=== PATIENT | male | born 1945 | race Caucasian/White ===

== ENCOUNTER 2017-10-03 07:49 | Emergency (ER) | payer OTHER, MEDICARE ==
[2017-10-03 08:12] VITALS: BMI 32.1
--- NOTE | 2017-10-03 08:16 | DR.GENAD ---
HPI - Complaint/Symptoms Chief Complaint Doctors Comments: Patient presented to the ED for evaluation due to weakness and falling on last night times three. He was diagnosed with influenza in [place] yesterday, given Rx for Tamiflu, pharmacy was out of medication. Patient states that he fell x 3 on last night due to weakness., admits to weakness for two to three days. Patient denies dyspnea or chest pain. PMH of cardiac stents 3-4 years ago. ROS - Review of Systems Constitutional: No Symptoms Reported Eyes: No Symptoms Reported ENTM: No Symptoms Reported Respiratoy: Dry Cough Gastrointestinal/Abdominal: Nausea Genitourinary: No Symptoms Reported Neurological: No Symptoms Reported Musculoskeletal: No Symptoms Reported Integumentary: No Symptoms Reported Hematologic/Lymphatic: No Symptoms Reported Endocrine: No Symptoms Reported Psychiatric: No Symptoms Reported All Other Systems: Reviewed and Negative PE - Vital Signs Vitals: Temperature 100.7 F Pulse Rate 103 Respiratory Rate 26 Blood Pressure 162/83 O2 Sat by Pulse Oximetry 92 - General Limitations: No Limitations General Appearance: Alert, In No Apparent Distress - Head Head Exam: Normal Inspection, Atraumatic - Eyes Eye exam: Normal Appearance, PERRL, EOMI - ENT ENT Exam: Normal Exam External Ear Exam: Normal External Inspection TM/Canal Exam: Bilateral Normal Nose Exam: Normal Nose Exam. negative: Sinus Tenderness Mouth Exam: Normal Inspection Throat Exam: Normal Inspection - Neck Neck Exam: Normal Inspection, Full ROM - Chest Chest Inspection: Normal Inspection - Respiratory Respiratory Exam: Normal Lung Sounds Bilat Respiratory Exam: Bilateral Clear to Auscultation - Cardiovascular Cardiovascular Exam: Regular Rate, Normal Rhythm - Abdominal Exam Abdominal Exam: Normal Inspection Abdominal Tenderness: negative: RUQ, RLQ, LUQ, LLQ, Epigastrium, Suprapubic, Diffuse, Mild, Moderate, Severe, Other - Extremities Extremities Exam: Normal Inspection, Other (bilateral knees with bruise). negative: Tenderness, Edema, Joint Swelling - Back Back Exam: Normal Inspection - Neurologic Neurological Exam: Alert, Oriented X3, CN II-XII Intact - Psychiatric Psychiatric Exam: Normal Affect, Normal Mood - Skin Skin Exam: Warm, Dry, Intact Course - Reevaluation 1st: Unchanged - Consultation Called: 09:30 (Dr Araujo accepted patient ER to ER) ROR - Labs Reviewed Laboratory Results Reviewed?: Yes (Influenza A) Result Diagrams: 10/03/17 08:30 10/03/17 08:30 Laboratory: WBC 7.5 X10^3/uL (3.6-10.0) 10/03/17 08:30 RBC 3.99 X10^6/uL (4.7-6.0) L 10/03/17 08:30 Hgb 12.3 g/dL (13.5-18.0) L 10/03/17 08:30 Hct 35.8 % (42.0-54.0) L 10/03/17 08:30 MCV 89.8 fL (80.0-100.0) 10/03/17 08:30 MCH 31.0 pg (27.0-34.0) 10/03/17 08: MCHC 34.5 g/dL (33.0-35.0) 10/03/17 08:30 RDW 14.1 % (11.6-16.5) 10/03/17 08:30 Plt Count 149 X10^3/uL (150.0-450.0) L 10/03/17 08:30 MPV 8.9 fL (7.4-11.0) 10/03/17 08:30 Neut % 83.4 % (42.0-75.0) H 10/03/17 08:30 Lymph % 7.1 % (21.0-51.0) L 10/03/17 08:30 [place] % 8.5 % (0.0-13.0) 10/03/17 08:30 Eos % 0.3 % (0.9-2.9) L 10/03/17 08: Baso % 0.7 % (0.2-1.0) 10/03/17 08:30 Neut # 6.3 x10^3/uL (2.2-4.8) H 10/03/17 08:30 Lymph # 0.5 X10^3/uL (1.3-2.9) L 10/03/17 08:30 [place] # 0.6 x10^3/uL (0.3-0.8) 10/03/17 08:30 Eos # 0.0 x10^3/uL (0.0-0.2) 10/03/17 08: Baso # 0.1 X10^3/uL (0.0-0.1) 10/03/17 08:30 Absolute Nucleated RBC 0.0 /100WBC 10/03/17 08:30 Sodium 135 mmol/L (136-145) L 10/03/17 08:30 Corrected Sodium TNP 10/03/17 08:30 Potassium 3.9 mmol/L (3.5-5.1) 10/03/17 08:30 Chloride 100 mmol/L (98-107) 10/03/17 08:30 Carbon Dioxide 23.8 mmol/L (21-32) 10/03/17 08:30 BUN 26 mg/dL (7-18) H 10/03/17 08:30 Creatinine 1.86 mg/dL (0.70-1.30) H 10/03/17 08:30 Est GFR (MDRD) Af Amer 46 (>60) L 10/03/17 08:30 Est GFR (MDRD) Non-Af 38 (>60) L 10/03/17 08:30 Glucose 103 mg/dL (65-99) H 10/03/17 08:30 Calcium 8.1 mg/dL (8.5-10.1) L 10/03/17 08:30 Corrected Calcium 8.7 mg/dL (8.5-10.1) 10/03/17 08:30 Total Bilirubin 0.80 mg/dL (0.2-1.0) 10/03/17 08:30 AST 49 Units/L (15-37) H 10/03/17 08:30 ALT 21 Units/L (12-78) 10/03/17 08:30 Alkaline Phosphatase 64 Units/L (46-116) 10/03/17 08:30 Creatine Kinase 3048 Units/L (39-308) H 10/03/17 08:30 CK-MB (CK-2) 3.1 ng/mL (0-4.0) 10/03/17 08:30 CK/CKMB % Calc 0.1 % (<4) 10/03/17 08:30 Troponin I 0.33 ng/mL (0-1.5) 10/03/17 08:30 Total Protein 7.2 g/dL (6.4-8.2) 10/03/17 08:30 Albumin 3.3 g/dL (3.4-5.0) L 10/03/17 08:30 Globulin 3.9 g/dL (2.5-4.5) 10/03/17 08:30 Albumin/Globulin Ratio 0.8 Ratio (1.1-2.1) L 10/03/17 08:30 Influenza Type A (PCR) Positive (NEGATIVE) A 10/03/17 08:41 Influenza Type B (PCR) Negative (NEGATIVE) 10/03/17 08:41 Streptococcus Screen Negative (NEGATIVE) 10/03/17 08:41 - XRAY XRAY Interpreted by: Radiologist (The trachea is midline. The cardiac silhouette is enlarged. The lungs demonstrate some ill-defined perihilar airspace opacities right basilar opacity suggesting pneumonia. The bony thorax is unremarkable. Impression: Early develooping multifocal pneumonia) - Diagnosis Discharge Problem: Acute myocardial infarction Qualifiers: Myocardial infarction ST status: ST elevation myocardial infarction Involved coronary artery: other coronary artery Qualified Code(s): I21.29 - ST elevation (STEMI) myocardial infarction involving other sites - Discharge Plan Condition: Stable - Follow ups/Referrals Follow ups/Referrals: BENOIT MCKEE [Primary Care Provider] - 3 days - Instructions
[2017-10-03] MEDS ORDERED: TORADOL 30 MG VIAL IVP ONE (08:19)
[2017-10-03] MEDS ORDERED: TORADOL 30 MG VIAL ONE ×2 (08:24→08:27)
[2017-10-03] MEDS ORDERED: NS 1000 ML 1,000 ML IV ONE (08:28)
[2017-10-03] MEDS ORDERED: NS 1000 ML 1,000 ML ONE ×2 (08:29→10:08)
[2017-10-03 08:49] LABS: BASOPHILS # (AUTO) 0.1 X10^3/uL (0.0-0.1); BASOPHILS % (AUTO) 0.7 % (0.2-1.0); EOSINOPHILS % (AUTO) 0.3 % (0.9-2.9); HEMATOCRIT 35.8 % (42.0-54.0); HEMOGLOBIN 12.3 g/dL (13.5-18.0); LYMPHOCYTES # (AUTO) 0.5 X10^3/uL (1.3-2.9); LYMPHOCYTES % (AUTO) 7.1 % (21.0-51.0); MEAN CORPUSCULAR HGB CONC 34.5 g/dL (33.0-35.0); MEAN CORPUSCULAR VOLUME 89.8 fL (80.0-100.0); MEAN PLATELET VOLUME 8.9 fL (7.4-11.0); MONOCYTES # (AUTO) 0.6 x10^3/uL (0.3-0.8); MONOCYTES % (AUTO) 8.5 % (0.0-13.0); NEUTROPHILS # (AUTO) 6.3 x10^3/uL (2.2-4.8); NEUTROPHILS % (AUTO) 83.4 % (42.0-75.0); PLATELET COUNT 149 X10^3/uL (150.0-450.0); RED BLOOD COUNT 3.99 X10^6/uL (4.7-6.0); RED CELL DISTRIBUTION WIDTH 14.1 % (11.6-16.5); WHITE BLOOD COUNT 7.5 X10^3/uL (3.6-10.0)
--- NOTE | 2017-10-03 09:07 | RAD ---
HISTORY: Cough and fever Study: Single-view chest Comparison: None Findings: The trachea is midline. The cardiac silhouette is enlarged.. The lungs demonstrate some ill-defined perihilar airspace opacities right basilar opacity suggesting pneumonia.. The bony thorax is unrema rkable. IMPRESSION: 1. Probable early developing multifocal pneumonia. Reported By:
[2017-10-03 09:15] LABS: BLOOD UREA NITROGEN 26 mg/dL (7-18); CALCIUM 8.1 mg/dL (8.5-10.1); CARBON DIOXIDE 23.8 mmol/L (21-32); CHLORIDE 100 mmol/L (98-107); CREATININE 1.86 mg/dL (0.70-1.30); SODIUM 135 mmol/L (136-145); TROPONIN I 0.33 ng/mL (0-1.5); eGFR BLACK RACES 46 (>60); eGFR NON BLACK RACES 38 (>60)
[2017-10-03 09:20] LABS: ALANINE AMINOTRANSFERASE 21 Units/L (12-78); ALBUMIN 3.3 g/dL (3.4-5.0); ALKALINE PHOSPHATASE 64 Units/L (46-116); ASPARTATE AMINO TRANSFERASE 49 Units/L (15-37); COR CA(FOR HYPOALB) 8.7 mg/dL (8.5-10.1); CREATINE KINASE MB 3.1 ng/mL (0-4.0); TOTAL PROTEIN 7.2 g/dL (6.4-8.2)
[2017-10-03 09:23] LABS: CKMB % 0.1 % (<4); CREATINE KINASE 3048 Units/L (39-308)
[2017-10-03 10:01] VITALS: BP 129/62
[2017-10-03] MEDS ORDERED: ASPIRIN 81 MG CHEWTAB ONE (10:06)
[2017-10-03] MEDS ORDERED: TAMIFLU PO ONE (10:06)
[2017-10-03] MEDS ORDERED: NS 100 ML IV + SPIKE MINIBAG* 100 ML IV ONE (10:08)
[2017-10-03] MEDS ORDERED: ROCEPHIN VIAL 1 GM ONE (10:08)
[2017-10-03] MEDS ORDERED: ROCEPHIN VIAL 1 GM 1 GM in NS 100 ML IV + SPIKE MINIBAG* 100 ML IV SCH (10:15)
[2017-10-03] MEDS ORDERED: TAMIFLU PO SCH (11:00)
[2017-10-03] MEDS ORDERED: ASPIRIN PO SCH (11:00)
== END 2017-10-03 10:47 | disposition short-term general hospital (02) ==
LOC: ER 08:03
DX: I21.29 ST elevation (STEMI) myocardial infarction involving other sites (principal); R79.1 Abnormal coagulation profile
CPT/HCPCS: 36415; 71045; 80053; 82550; 82553; 84484; 85025; 85610; 85730; 87040; 87070; 87205; 87502; 87880; 93005; 93010; 96365; 96367; 96374; 96375; 99285; A4222; G9035; J0696; J1885